=== PATIENT | female | born 2000 | race African-American/Black ===

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

== ENCOUNTER 2019-03-20 12:33 | Emergency (ER) | payer SELFPAY ==
[~2019-03-20] VITALS: Ht 170.2 cm; Wt 42.2 kg
[~2019-03-20 12:33] MED LIST changes: +CEPHALEXIN500 M1 ORAL
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
[2019-03-20 13:00] VITALS: BP 116/59
--- NOTE | 2019-03-20 13:02 | NUR ---
ED Nurse Note: Pt went on ct.
--- NOTE | 2019-03-20 13:22 | NUR ---
ED Nurse Note: pt returned from ct. remains without new c/o a/ox4
--- NOTE | 2019-03-20 13:38 | Diagnostic Imaging Report ---
Indication: Headache Technique: Contiguous 5 mm thick transaxial imaging of the head obtained in a Siemens Sensation [address] scanner. Soft tissue and bone windows generated. Automatic Exposure Control was utilized. Total Dose length Product (DLP): 1274.[address] Dose Index Volume (CTDIvol): 60 mGy Comparison: none Findings: The size and configuration of the cortical sulci, basal cisterns, and ventricles are within normal limits for age. There is no mass effect, midline shift, or edema identified. There is no evidence of acute hemorrhage or abnormal intra-axial or extra-axial fluid collections. The bones and soft tissues are unremarkable. Impression: No mass effect, edema or acute bleed. The CT scanner at [facility] is accredited by the [employer] and the scans are performed using dose optimization techniques as appropriate to a performed exam including Automatic Exposure control.
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
[2019-03-20] MEDS ORDERED: ROBAXIN-500MG ORAL (13:57)
[2019-03-20] MEDS ORDERED: LIDODERM700 M1 TOPIC (13:57)
[2019-03-20] MEDS ORDERED: IBUPROFEN400 MG ORAL (13:57)
[2019-03-20 14:04] VITALS: BP 116/59
--- NOTE | 2019-03-20 14:04 | NUR ---
ER DISCHARGE NOTE: Pt is cleared to be discharged per ERMD. Pt is AOx4, VSS, on RA. pt was given dc and prescription instructions, pt was able to verbalize understanding, pt id band removed. pt is able to ambulate with steady gait. pt took all belongings.
== END 2019-03-20 14:04 | disposition home or self-care (01) ==
LOC: EMR 13:00
DX: S00.93XA Contusion of unspecified part of head, initial encounter (principal); S16.1XXA Strain of muscle, fascia and tendon at neck level, initial encounter; M54.6 Pain in thoracic spine; V49.9XXA Car occupant (driver) (passenger) injured in unspecified traffic accident, initial encounter; Y92.9 Unspecified place or not applicable
CPT/HCPCS: 70450; 99284

== ENCOUNTER 2019-04-15 18:49 | Emergency (ER) | payer SELFPAY ==
[~2019-04-15] VITALS: Ht 167.6 cm; Wt 44.5 kg
[~2019-04-15 18:49] MED LIST changes: +IBUPROFEN400 MG ORAL; +LIDODERM700 M1 TOPIC; +ROBAXIN-500MG ORAL
[2019-04-15 19:10] VITALS: BP 99/64
--- NOTE | 2019-04-15 19:10 | NUR ---
ED Nurse Note: Pt ambulated into ED from home [place] current UTI and reports taking AZO for last 3 days prior to visiting ED. Pt reports hx of UTI. Pt denies fever/chills/n/v. Pt reports abdominal pain and burning during urination. VSS, no s/s of distress noted. Awaiting ERMD at bedside
--- NOTE | 2019-04-15 19:15 | NUR ---
ED Nurse Note: ERPA at bedside
--- NOTE | 2019-04-15 19:17 | NUR ---
ED Nurse Note: Pt in restroom providing UA sample
--- NOTE | 2019-04-15 19:24 | NUR ---
ED Nurse Note: UA sent to lab
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
[2019-04-15 19:45] LABS: BILIRUBIN, URINE 2+ (NEGATIVE); GLUCOSE, URINE (UA) NEGATIVE (NEGATIVE); KETONES,URINE 1+ (NEGATIVE); LEUKOCYTE ESTERASE ,URINE 2+ (NEGATIVE); NITRITE,URINE POSITIVE (NEGATIVE); PH,URINE 7 (4.5-8.0); PROTEIN,URINE 3+ (NEGATIVE); UROBILINOGEN,URINE 8 MG/DL (0.0-1.0)
[2019-04-15 19:47] LABS: APPEARANCE,URINE SLIGHTLY CLOUDY; COLOR,URINE YELLOW
[2019-04-15] MEDS ORDERED: NITROFURANTOIN100 M2 ORAL (19:53)
[2019-04-15] MEDS ORDERED: TYLENOL EXTRA500 MG ORAL (19:53)
--- NOTE | 2019-04-15 19:55 | NUR ---
ED Nurse Note: ERPA at bedside
[2019-04-15 19:57] VITALS: BP 99/64
--- NOTE | 2019-04-15 19:57 | NUR ---
ER DISCHARGE NOTE: Patient is cleared to be discharged home per ERMD, pt is aox4, on room air, with stable vital signs. pt was given dc and prescription instructions, pt was able to verbalize understanding, pt id band removed. pt is able to ambulate with steady gait. pt took all belongings.
== END 2019-04-15 19:57 | disposition home or self-care (01) ==
LOC: EMR 19:20
DX: N30.00 Acute cystitis without hematuria (principal); R30.0 Dysuria
CPT/HCPCS: 81003; 81025; 87086; 87181; 99282

== ENCOUNTER 2020-01-01 19:00 | Emergency (ER) | payer SELFPAY ==
[~2020-01-01] VITALS: Ht 167.6 cm; Wt 43.1 kg
[~2020-01-01 19:00] MED LIST changes: +ACETAMINOPHEN-1 EAC1 ORAL; +AYGESTIN5 MG PO; +IBUPROFEN600 M1 ORAL; +IRON 100-VITAM1 EACH PO; +ROBAXIN-750750 MG PO; +TYLENOL EXTRA500 MG ORAL
[2020-01-01 19:14] VITALS: BP 112/77
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
[2020-01-01] MEDS ORDERED: BACLOFEN10 MG ORAL (19:24)
[2020-01-01] MEDS ORDERED: MOVANTIK25 MG PO (19:24)
[2020-01-01] MEDS ORDERED: AMLODIPINE BESYL5 MG ORAL (19:24)
[2020-01-01] MEDS ORDERED: BISACODYL5 MG ORAL (19:24)
[2020-01-01] MEDS ORDERED: CARAFATE1 G1 ORAL (19:24)
[2020-01-01] MEDS ORDERED: CATAPRES0.1 MG ORAL (19:24)
[2020-01-01] MEDS ORDERED: NORCO 10-325 T1 EACH ORAL (19:24)
[2020-01-01] MEDS ORDERED: GABAPENTIN100 MG ORAL (19:24)
[2020-01-01] MEDS ORDERED: OMEPRAZOLE40 M1 ORAL (19:24)
[2020-01-01] MEDS ORDERED: RISPERDAL0.5 MG ORAL (19:24)
[2020-01-01] MEDS ORDERED: FLUOXETINE HCL10 M2 ORAL (19:24)
[2020-01-01] MEDS ORDERED: TRAMADOL HCL50 MG ORAL (19:24)
[2020-01-01] MEDS ORDERED: FAMOTIDINE20 MG ORAL (19:24)
--- NOTE | 2020-01-01 19:34 | NUR ---
ED Nurse Note: ERMD at bedside
--- NOTE | 2020-01-01 19:38 | NUR ---
ED Nurse Note: US at bedside. pt refused trans vaginal US. ERMD aware.
[2020-01-01 19:52] LABS: APPEARANCE,URINE CLOUDY; BILIRUBIN, URINE NEGATIVE (NEGATIVE); GLUCOSE, URINE (UA) NEGATIVE (NEGATIVE); KETONES,URINE 1+ (NEGATIVE); LEUKOCYTE ESTERASE ,URINE 1+ (NEGATIVE); NITRITE,URINE NEGATIVE (NEGATIVE); PH,URINE 6.5 (4.5-8.0); PROTEIN,URINE 2+ (NEGATIVE); UROBILINOGEN,URINE 4 MG/DL (0.0-1.0)
[2020-01-01 19:55] LABS: COLOR,URINE YELLOW
[2020-01-01 20:12] LABS: BASOPHILS % (AUTO) 0.9 % (0.0-2.0); EOSINOPHILS % (AUTO) 1.6 % (0.0-3.0); HEMATOCRIT 40.3 % (37.0-47.0); HEMOGLOBIN 13.3 G/DL (12.0-16.0); LYMPHOCYTES % (AUTO) 24.7 % (20.0-45.0); MEAN CORPUSCULAR VOLUME 92 FL (80-99); MONOCYTES % (AUTO) 6.2 % (1.0-10.0); NEUTROPHILS % (AUTO) 66.6 % (45.0-75.0); PLATELET COUNT 260 K/UL (150-450); RED BLOOD COUNT 4.36 M/UL (4.20-5.40); RED CELL DISTRIBUTION WIDTH 11.9 % (11.6-14.8); WHITE BLOOD COUNT 8.5 K/UL (4.8-10.8)
--- NOTE | 2020-01-01 20:30 | NUR ---
ED Nurse Note: US COMPLETE. AWAITING ERMD AT BEDSIDE FOR RE EVAL
--- NOTE | 2020-01-01 21:01 | Diagnostic Imaging Report ---
EXAM: US Pelvis Transabdominal, Complete CLINICAL HISTORY: ABD PAIN TECHNIQUE: Real-time complete transabdominal pelvic ultrasound with image documentation. COMPARISON: None. FINDINGS: Uterus/cervix: The uterus measures 6.6 x 4.4 x 3.5 cm. The uterus is retroverted. The endometrium measures 6.7 mm and is hyperechoic. No myometrial mass. Right ovary: The right ovary measures 2.2 x 1.2 x 2.3 cm. Normal blood flow. Left ovary: The left ovary is not visualized. Free fluid: Small free fluid in the cul-de-sac. Bladder: Unremarkable as visualized. Wall is normal thickness for degree of distention. IMPRESSION: Nonvisualized left ovary otherwise unremarkable female pelvis ultrasound.
[2020-01-01 21:09] LABS: ALANINE AMINOTRANSFERASE 12 U/L (12-78); ALBUMIN 4.5 G/DL (3.4-5.0); ALBUMIN/GLOBULIN RATIO 1.4 (1.0-2.7); ALKALINE PHOSPHATASE 49 U/L (46-116); ANION GAP 9 mmol/L (5-15); ASPARTATE AMINO TRANSFERASE 18 U/L (15-37); BILIRUBIN,TOTAL 0.5 MG/DL (0.2-1.0); BLOOD UREA NITROGEN 10 mg/dL (7-18); CALCIUM 9.2 MG/DL (8.5-10.1); CARBON DIOXIDE 25 MMOL/L (21-32); CHLORIDE 103 MMOL/L (98-107); CREATININE 0.8 MG/DL (0.55-1.30); POTASSIUM 3.4 MMOL/L (3.5-5.1); SODIUM 136 MMOL/L (136-145)
--- NOTE | 2020-01-01 21:20 | NUR ---
ED Nurse Note: ermd at bedside for update
--- NOTE | 2020-01-01 21:22 | Emergency Room Report ---
History of Present Illness General Chief Complaint: Abdominal Pain Source: Patient Present Illness HPI The patient states that she has had ongoing pelvic pain for the past couple months. She states that it is lower in her pelvis and moves from the right to the left side. She states that her family has a history of fibroids and so she is concerned she may have fibroids. She did recently get an STD check and states that it was negative. This was less than a week ago. She does note that she does have some foul odor to her discharge. She denies fever or chills. She denies nausea or vomiting. She denies dysuria or hematuria. She is not currently on her menses. She has no other complaints. Allergies: Coded Allergies: No Known Allergies (Unverified , 01/02/18) COVID-19 Screening Contact w/high risk pt: No Experienced COVID-19 symptoms?: No COVID-19 Testing performed STAIN MAKER: No Patient History Past Medical History: none, see triage record Social History: Denies: smoking, alcohol use, drug use Last Menstrual Period: 12/24/19 Reviewed Nursing Documentation: PMH: Agreed; PSxH: Agreed Review of Systems All Other Systems: negative except mentioned in HPI Physical Exam Vital Signs Date Time Temp Pulse Resp B/P (MAP) Pulse Ox O2 Delivery O2 Flow Rate FiO2 01/01/20 19:07 98.4 73 18 112/77 (89) 97 Room Air Sp02 EP Interpretation: reviewed, normal General Appearance: no apparent distress, alert, GCS 15, non-toxic Head: normocephalic, atraumatic Eyes: bilateral eye normal inspection ENT: hearing grossly normal, no angioedema, normal voice Neck: normal inspection, full range of motion Respiratory: no respiratory distress, no retraction, no accessory muscle use, speaking full sentences Gastrointestinal: normal bowel sounds, soft, non-distended, no guarding, no rebound, tenderness - TTP in the LLQ Rectal: deferred Musculoskeletal: back normal, normal range of motion, gait/station normal, non- tender Neurologic: alert, motor strength/tone normal, oriented x3, sensory intact, responsive, speech normal Psychiatric: judgement/insight normal, memory normal, mood/affect normal, no suicidal/homicidal ideation Skin: no rash, normal color Medical Decision Making Diagnostic Impression: Primary Impression: UTI (urinary tract infection) ER Course Patient has a clinical presentation consistent with simple UTI. There are no systemic symptoms to include fever, chills, sweating, nausea or vomiting that would make me concerned for pyelonephritis. Overall this patient's evaluation is benign. Patient is stable for outpatient oral antibiotic therapy. I did obtain a pelvic ultrasound for the patient's concern of ongoing pelvic pain and no history of ultrasound in the past. This was unremarkable. The patient recently had a sexually transmitted disease work-up and it was negative. I do not feel that repeat STD work-up is indicated at this time. I will place the patient on antibiotics for the UTI and give the patient a fluconazole for preven tion. The patient was given return precautions and followup instructions. Laboratory Tests Test 01/01/20 19:13 01/01/20 19:54 Urine Color Yellow Urine Appearance Cloudy Urine pH 6.5 (4.5-8.0) Urine Specific [place] 1.015 (1.005-1.035) Urine Protein 2+ (NEGATIVE) H Urine Glucose (UA) Negative (NEGATIVE) Urine Ketones 1+ (NEGATIVE) H Urine Blood Negative (NEGATIVE) Urine Nitrite Negative (NEGATIVE) Urine Bilirubin Negative (NEGATIVE) Urine Urobilinogen 4 MG/DL (0.0-1.0) H Urine Leukocyte Esterase 1+ (NEGATIVE) H Urine RBC 0-2 /HPF (0 - 2) Urine WBC 10-15 /HPF (0 - 2) H Urine Squamous Epithelial Cells Moderate /LPF (NONE/OCC) H Urine Bacteria Many /HPF (NONE) H Urine HCG, Qualitative Negative (NEGATIVE) Chlamydia trachomatis RNA Pending Neisseria gonorrhoeae RNA Pending White Blood Count 8.5 K/UL (4.8-10.8) Red Blood Count 4.36 M/UL (4.20-5.40) Hemoglobin 13.3 G/DL (12.0-16.0) Hematocrit 40.3 % (37.0-47.0) Mean Corpuscular Volume 92 FL (80-99) Mean Corpuscular Hemoglobin 30.4 PG (27.0-31.0) Mean Corpuscular Hemoglobin Concent 32.9 G/DL (32.0-36.0) Red Cell Distribution Width 11.9 % (11.6-14.8) Platelet Count 260 K/UL (150-450) Mean Platelet Volume 5.3 FL (6.5-10.1) L Neutrophils (%) (Auto) 66.6 % (45.0-75.0) Lymphocytes (%) (Auto) 24.7 % (20.0-45.0) Monocytes (%) (Auto) 6.2 % (1.0-10.0) Eosinophils (%) (Auto) 1.6 % (0.0-3.0) Basophils (%) (Auto) 0.9 % (0.0-2.0) Sodium Level 136 MMOL/L (136-145) Potassium Level 3.4 MMOL/L (3.5-5.1) L Chloride Level 103 MMOL/L (98-107) Carbon Dioxide Level 25 MMOL/L (21-32) Anion Gap 9 mmol/L (5-15) Blood Urea Nitrogen 10 mg/dL (7-18) Creatinine 0.8 MG/DL (0.55-1.30) Estimated Glomerular Filtration Rate > 60 mL/min (>60) Glucose Level 79 MG/DL (74-106) Calcium Level 9.2 MG/DL (8.5-10.1) Total Bilirubin 0.5 MG/DL (0.2-1.0) Aspartate Amino Transferase (AST) 18 U/L (15-37) Alanine Aminotransferase (ALT) 12 U/L (12-78) Alkaline Phosphatase 49 U/L (46-116) Total Protein 7.8 G/DL (6.4-8.2) Albumin 4.5 G/DL (3.4-5.0) Globulin 3.3 g/dL Albumin/Globulin Ratio 1.4 (1.0-2.7) Thyroid Stimulating Hormone (TSH) 2.016 uiU/mL (0.358-3.740) Free Thyroxine 0.90 NG/DL (0.76-1.46) Free Triiodothyronine 2.6 pg/mL (2.3-4.2) CT/MRI/US Diagnostic Results CT/MRI/US Diagnostic Results : Imaging Test Ordered: US pelvis Impression No acute findings. See official report in electronic medical record. Last Vital Signs Date Time Temp Pulse Resp B/P (MAP) Pulse Ox O2 Delivery O2 Flow Rate FiO2 01/01/20 19:14 98.4 73 18 112/77 97 Room Air Status: improved Disposition: HOME, SELF-CARE Condition: Improved Referrals: NOT CHOSEN IPA/,REFERRING (PCP) Annelise Piña DO Jan 01, 2020 21:22
[2020-01-01] MEDS ORDERED: Labetalol 5mg/ml 20ml vial IV ONE (21:30)
[2020-01-01] MEDS ORDERED: NITROFURANTOIN100 M2 ORAL (21:33)
[2020-01-01 21:50] VITALS: BP 116/79
--- NOTE | 2020-01-01 21:50 | NUR ---
ER DISCHARGE NOTE: Patient is cleared to be discharged home per ERMD, pt is aox4, 99% on room air, with stable vital signs. pt was given dc and prescription instructions, pt was able to verbalize understanding, pt id band and iv site removed without complications. pt is able to ambulate with steady gait. pt took all belongings.
== END 2020-01-01 21:50 | disposition home or self-care (01) ==
LOC: EMR 19:28
DX: N39.0 Urinary tract infection, site not specified (principal)
CPT/HCPCS: 36415; 76830; 76856; 80053; 81003; 81025; 84439; 84443; 84481; 85025; 87086; 87181; 87491; 87590; 99284

== ENCOUNTER 2020-01-24 20:43 | Emergency (ER) | payer SELFPAY ==
[~2020-01-24] VITALS: Ht 167.6 cm; Wt 44.5 kg
[~2020-01-24 20:43] MED LIST changes: +AMLODIPINE BESYL5 MG ORAL; +BACLOFEN10 MG ORAL; +BISACODYL5 MG ORAL; +CARAFATE1 G1 ORAL; +CATAPRES0.1 MG ORAL; +FAMOTIDINE20 MG ORAL; +FLUOXETINE HCL10 M2 ORAL; +GABAPENTIN100 MG ORAL; +MOVANTIK25 MG PO; +NORCO 10-325 T1 EACH ORAL; +OMEPRAZOLE40 M1 ORAL; +RISPERDAL0.5 MG ORAL
[2020-01-24 20:54] VITALS: BP 111/61
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
[2020-01-24] MEDS ORDERED: IBUPROFEN600 M1 ORAL (22:00)
[2020-01-24] MEDS ORDERED: ROBAXIN-500MG ORAL (22:00)
[2020-01-24 22:05] VITALS: BP 123/76
== END 2020-01-24 22:05 | disposition home or self-care (01) ==
LOC: EMR 21:00
DX: S13.4XXA Sprain of ligaments of cervical spine, initial encounter (principal); S06.0X1A Concussion with loss of consciousness of 30 minutes or less, initial encounter; V43.52XA Car driver injured in collision with other type car in traffic accident, initial encounter; Y92.411 Interstate highway as the place of occurrence of the external cause
CPT/HCPCS: 72040; 99283

== ENCOUNTER 2020-05-03 19:36 | Emergency (ER) | payer SELFPAY ==
[~2020-05-03] VITALS: Ht 167.6 cm; Wt 43.1 kg
--- NOTE | 2020-05-03 19:59 | NUR ---
ED Nurse Note: patient coming from home, discoloration to hands bilaterally x1 week, per pt no medical hx, vitals stable, aox4, ambulatory
[2020-05-03 20:01] VITALS: BP 103/61
[2020-05-03] MEDS ORDERED: ANTI-ITCH28 G1 TP (20:10)
--- NOTE | 2020-05-03 20:13 | Emergency Room Report ---
History of Present Illness General Chief Complaint: Skin Rash/Abscess Source: Patient Present Illness HPI Disclaimer: Please note that this report is being documented using [employer] technology. This can lead to erroneous entry secondary to incorrect interpretation by the dictating instrument. HPI: 19-year-old -[place] female presents for evaluation of discoloration around her hands. She states 2 days ago she noticed blotchy patches around the tips of her fingers on the dorsum of the hands. Looks like the normal pigment that was there is loss. She denies pain or swelling. Denies skin breakdown, redness, warmth, fluctuance. No limitation of range of motion in the hands or wrist. No fever or chills. There is a family history of autoimmune disease including lupus. Denies exposure to chemicals. No other complaints or symptoms. PMH: Denied PSH: Denied Allergies: Denied Social Hx: Denied Allergies: Coded Allergies: No Known Allergies (Unverified , 01/02/18) COVID-19 Screening Contact w/high risk pt: No Experienced COVID-19 symptoms?: No COVID-19 Testing performed ACID CONDITIONER: No Patient History Now: No Nursing Documentation-PMH Past Medical History: No Stated History Hx Cardiac Problems: No Hx Hypertension: No Hx Pacemaker: No Hx Asthma: No Hx COPD: No Hx Diabetes: No Hx Cancer: No Hx Gastrointestinal Problems: No Hx Dialysis: No History Of Psychiatric Problem: No Hx Neurological Problems: No Hx Cerebrovascular Accident: No Hx Seizures: No Review of Systems All Other Systems: negative except mentioned in HPI Physical Exam Vital Signs Date Time Temp Pulse Resp B/P (MAP) Pulse Ox O2 Delivery O2 Flow Rate FiO2 05/03/20 19:51 98.8 16 103/61 (75) 100 Room Air General: Awake and alert, no acute distress HEENT: NC/AT. EOMI. Resp: Normal work of breathing Skin: Intact. No abrasions, laceration or rash over the exposed skin. There blotchy areas of loss of pigment over the dorsum of the hands and particularly centered around the tips of the fingers around the fingernails. No erythema, no edema, no ulcerations, no breakdown, no tenderness. MSK: Normal tone and bulk. Moving all extremities. No obvious deformity. Neuro: Awake and alert. Mentating appropriately Medical Decision Making Diagnostic Impression: Primary Impression: Vitiligo ER Course 19-year-old female presents after noticing blotchy patches of loss of pigment over hands. Most consistent with a vitiligo particularly given the family history of autoimmune diseases. No exposure to chemicals, no signs of infections, otherwise well-appearing. She will require dermatology follow-up. Will prescribe a short course of topical steroids. Refer to clinic and instructed to return to the ER with new or worsening symptoms. Last Vital Signs Date Time Temp Pulse Resp B/P (MAP) Pulse Ox O2 Delivery O2 Flow Rate FiO2 05/03/20 20:01 98.8 16 103/61 100 Room Air Disposition: HOME, SELF-CARE Condition: Stable Scripts Hydrocortisone 2% Cream (ANTI-ITCH 2% CREAM) Y Cr 28 GM TP DAILY, #28 GM Prov: Kirill Taylor MD 05/03/20 Patient Instructions: PUVA Treatment Additional Instructions: Follow-up with clinic for referral to dermatology. Apply the medicated cream as instructed. Return to the ER with new or worsening symptoms. Kirill Taylor MD May 03, 2020 20:13
== END 2020-05-03 20:28 | disposition home or self-care (01) ==
LOC: EMR 19:57
DX: L80 Vitiligo (principal)
CPT/HCPCS: 99282